=== PATIENT | male | born 1940 | race Caucasian/White ===

== ENCOUNTER 2017-01-05 10:47 | Day surgery (SDC) | payer MEDICARE, OTHER ==
[2016-12-31 08:53] LABS: HEMATOCRIT 35.6 % (40.0-51.0)
[2016-12-31 09:08] LABS: BUN (BLOOD UREA NITROGEN) 23 MG/DL (6-23); CALCIUM, SERUM 8.5 MG/DL (8.5-10.4); CHLORIDE, SERUM 107 MMOL/L (96-112); CREATININE 1.25 MG/DL (0.70-1.30); GFR AFRICAN AMERICAN 64 ML/MIN (>=60); GFR NON AFRICAN AMERICAN 56 ML/MIN (>=60); GLUCOSE, SERUM 114 MG/DL (60-99); POTASSIUM, SERUM 4.3 MMOL/L (3.5-5.3)
[2016-12-31 09:10] LABS: CO2 (CARBON DIOXIDE) 31 MMOL/L (24-34); SODIUM, SERUM 143 MMOL/L (135-148)
[~2017-01-05 10:47] MED LIST: ACTOS15 PO; ALTA5 PO; ASA5GR PO; ASAB PO; BREO ELLIPTA INH; C5; COMBIVENT RESPIM4 GM INH; COREG25 PO; COZ50 PO; ELIQUIS 5 MG TAB5 MG PO; FLOVENT110 INH; HALF81 PO; L20 PO; LEVAQUIN750 MG PO; LIPITOR40 PO; LOFIB160 PO; LOFIBRA160 MG PO; LOM PO; LOP50 PO; M-CLEAR WC PO; MULTIVITAMI1 PO; OXECTA5 MG PO; PCET PO; PLETAL100 PO; PRADAXA75 MG PO; PRIN10 PO; PROAIR HFA INH; PROTONIX PO; PROVENTSOL INH; RYTHMOL225 MG PO; SINGULAIR1 PO; TESS PO; TOPXL100 PO; TYLENOL 8 HR650 MG PO; VITE1000 PO; XARELTO15 MG PO; XARELTO20 MG PO; Z100 PO; ZOCOR40 PO
[2017-05-11] MEDS ORDERED: RYTHMOL225 MG PO (15:12)
[2017-05-19] MEDS ORDERED: OXYCOD PO (11:41)
== END 2017-01-05 16:48 | disposition home or self-care (01) ==
LOC: IMGHOLD 10:47 → RADHOLD 10:55
PROVIDERS: Physician Assistant
PROC: B03BZZZ Magnetic Resonance Imaging (MRI) of Spinal Cord (ICD-10-PCS; principal; 2017-01-05)
PROC: BW3GZZZ Magnetic Resonance Imaging (MRI) of Pelvic Region (ICD-10-PCS; 2017-01-05)
DX: M43.16 Spondylolisthesis, lumbar region (principal); M51.36 Other intervertebral disc degeneration, lumbar region; M19.90 Unspecified osteoarthritis, unspecified site; M10.9 Gout, unspecified; G54.9 Nerve root and plexus disorder, unspecified; I25.10 Atherosclerotic heart disease of native coronary artery without angina pectoris; I10 Essential (primary) hypertension; I48.91 Unspecified atrial fibrillation; J44.9 Chronic obstructive pulmonary disease, unspecified; H91.91 Unspecified hearing loss, right ear; F40.240 Claustrophobia; E78.00 Pure hypercholesterolemia, unspecified; E11.51 Type 2 diabetes mellitus with diabetic peripheral angiopathy without gangrene; E66.01 Morbid (severe) obesity due to excess calories; Z68.38 Body mass index [BMI] 38.0-38.9, adult; Z95.1 Presence of aortocoronary bypass graft; Z79.01 Long term (current) use of anticoagulants; Z79.82 Long term (current) use of aspirin; Z79.899 Other long term (current) drug therapy; Z87.891 Personal history of nicotine dependence; Z97.2 Presence of dental prosthetic device (complete) (partial); Z86.718 Personal history of other venous thrombosis and embolism; Z87.01 Personal history of pneumonia (recurrent); Z96.653 Presence of artificial knee joint, bilateral; Z96.641 Presence of right artificial hip joint
CPT/HCPCS: 72148; 72195; 80048; 82962; 85014; 85018; 93005; J2250; J3010